=== PATIENT | female | born 1985 | race Two or more races ===

== ENCOUNTER 2020-12-30 12:10 | Outpatient (CLI) | payer OTHER | END 2020-12-30 12:15 | disposition home or self-care (01) | LOC: PPH VACUNA 12:10 | PROVIDERS: ATTEND Emergency Medicine Pediatric Emergency Medicine | DX: Z23 Encounter for immunization (principal) ==

== ENCOUNTER 2021-12-17 08:25 | Outpatient (CLI) | payer OTHER | END 2021-12-17 08:35 | disposition home or self-care (01) | LOC: PPH VACUNA 08:25 | PROVIDERS: ATTEND Emergency Medicine Pediatric Emergency Medicine | DX: Z23 Encounter for immunization (principal) ==